=== PATIENT | female | born 1945 | race Caucasian/White ===

== ENCOUNTER → 2016-03-31 | Outpatient (CLI) | payer OTHER, BC ==
[~2016-03-31] VITALS: Ht 154.9 cm; Wt 76.6 kg
[~2016-03-31] MED LIST: AMITRIPTYLINE H25 M2 PO; FLEXERIL PO; FLUOXETINE HCL40 MG PO; HYDROCODONE-AP1 EAC6 PO; LISINOPRIL-HCT1 EACH PO; LYRICA 75 MG CA75 MG PO; MYRBETRIQ50 MG PO; NORVASC2.5 MG PO; PRAVACHOL40 MG PO; TRAMADOL 50 MG50 MG PO
--- NOTE | ~2016-03-31 | HPC ---
[facility] [address] [place] [address] PAIN MANAGEMENT CONSULTATION Name: HILARY JENNINGS Room #: REG TYE Corley#: [id number] Admission: 03/31/16 Attend Phys: Ry Coronado DO Discharge: Date of : 45 Report #: [id number] THIS REPORT FOR: //name// CC: Mercedez Coronado The patient is a 70-year-old female previously seen in the pain clinic 03/06/2016. She is status post cervical decompressive laminectomy, cervical spondylosis. I had done left C2-C3 cervical facet joint injections at that time. The patient returns to pain clinic today noting she has had 50% improvement of pain for about 3 weeks, but it recurred. She is also complaining a little more actually left and right-sided pain though distal primarily left upper neck component of radicular pain as well. Subjective pain score is 8/10. PHYSICAL EXAMINATION: Shows a 70-year-old female, BMI is on EMR . Vital signs stable as noted in the EMR. Well-healed surgical scar compatible with posterior decompressive laminectomy in cervical spine. Cervical range of motion is limited, tender over the cervical facets. Positive Lhermitte's sign. Reviewed MRI from 02/25/2016 noting multilevel cervical spondylosis with multilevel spinal stenosis throughout cervical canal, advanced bilateral neural foraminal stenosis at C4-C5. ASSESSMENT: Symptomatic cervical radiculopathy status post decompressive laminectomy, component of cervical spondylosis. After a long discussion with the patient today about therapeutic options, we have elected to proceed with an epidural injection under fluoroscopy today. Follow up in 3 weeks for reevaluation. If she has greater than 50% relief we will her simply follow up as needed, if she gets transient relief we will consider medial branch dorsal rami diagnostic block and RFL left C2 and C3. PROCEDURE NOTE: Cervical epidural injection under fluoroscopy. PROCEDURE NOTE: After written and informed consent was obtained including risk of dural puncture, spinal cord trauma, paralysis and increased pain, the patient was taken to the fluoroscopy suite and placed in the prone position, with appropriate abdominal bolstering, neck was flexed, palms under the thighs. Skin was prepped with ChloraPrep. Sterile draping was applied. Skin wheal with 1% Xylocaine was raised. A 22-gauge 3-1/2 inch epidural Tuohy needle was placed via a midline approach at the C7-T1 interspace, advanced under biplanar fluoroscopy using continuous loss of resistance. With appropriate loss of resistance at the expected depth on lateral view, the glass loss of resistance syringe was disconnected. A low volume extension tubing was connected to the needle and a 5 mL syringe. Negative aspiration for cerebrospinal fluid or blood [address] [address] PAIN MANAGEMENT CONSULTATION Name: HILARY JENNINGS Room #: REG TYE Corley#: [id number] Admission: 03/31/16 Attend Phys: Ry Coronado DO Discharge: Date of : 45 Report #: [id number] was noted. A 1 mL of Omnipaque was injected which showed spread within the epidural space on biplanar fluoroscopy. This was followed with 80 mg of triamcinolone plus 1 mL of 1.5% preservative Xylocaine. Needle was withdrawn to the interspinous ligament, 0.5 mL of Xylocaine was used to flush the needle. The needle was then completely withdrawn. The area was cleansed. Band-Aid was applied. The patient was allowed to move off the procedure table and ambulated to the recovery room, monitored for an appropriate period of time, discharged in good and stable condition. Please note the patient noted her pain at 8/10 on admission, was absent on discharge. <ELECTRONICALLY SIGNED> By: Ry Coronado DO 04/03/16 0917 [id number] Ry Coronado DO /nt
[2016-03-31 13:16] VITALS: BP 120/74
== END ==
LOC: PAIN 07:07
DX: M47.22 Other spondylosis with radiculopathy, cervical region (principal); I10 Essential (primary) hypertension